=== PATIENT | male | born 1960 | race Caucasian/White ===

== ENCOUNTER 2016-07-07 13:12 | Emergency (ER) | payer MEDICARE, MEDICAID ==
[~2016-07-07] VITALS: Ht 162.6 cm; Wt 63.6 kg
[2016-07-07 13:14] VITALS: TEMP 98.2
[2016-07-07] MEDS ORDERED: SYNTHROID0.05 MG/TA PO (14:18)
[2016-07-07] MEDS ORDERED: NORVASC 5MG5 MG/TAB PO (14:18)
[2016-07-07] MEDS ORDERED: PRILOSEC 20MG20 MG PO (14:19)
[2016-07-07] MEDS ORDERED: TRIPHROCAPS SOFT1 MG PO (14:19)
[2016-07-07] MEDS ORDERED: ASPIRIN E.C. 8181 MG PO (14:20)
[2016-07-07] MEDS ORDERED: PHOS LO PO (14:21)
[2016-07-07 15:26] VITALS: BP 166/98; PULSE 86
== END 2016-07-07 15:28 | disposition home or self-care (01) ==
LOC: COL.ER 13:12
DX: R04.0 Epistaxis (principal); I12.9 Hypertensive chronic kidney disease with stage 1 through stage 4 chronic kidney disease, or unspecified chronic kidney disease; N18.9 Chronic kidney disease, unspecified; Z79.82 Long term (current) use of aspirin

== ENCOUNTER 2016-07-09 19:12 | Emergency (ER) | payer MEDICARE, MEDICAID ==
[~2016-07-09] VITALS: Ht 165.1 cm; Wt 63.6 kg
[~2016-07-09 19:12] MED LIST: ASPIRIN E.C. 8181 MG PO; NORVASC 5MG5 MG/TAB PO; PHOS LO PO; PRILOSEC 20MG20 MG PO; SYNTHROID0.05 MG/TA PO; TRIPHROCAPS SOFT1 MG PO
[2016-07-09 19:18] VITALS: TEMP 98.2
[2016-07-09] MEDS ORDERED: AMOXICILLIN875 MG PO (19:48)
[2016-07-09] MEDS ORDERED: RENVELA800 MG PO (19:49)
[2016-07-09] MEDS ORDERED: CATAPRES 0.1MG0.1 MG PO (20:31)
[2016-07-09 20:42] VITALS: BP 170/95; PULSE 88
== END 2016-07-09 20:43 | disposition home or self-care (01) ==
LOC: COL.ER 19:12
DX: R04.0 Epistaxis (principal); I12.0 Hypertensive chronic kidney disease with stage 5 chronic kidney disease or end stage renal disease; N18.6 End stage renal disease; Z99.2 Dependence on renal dialysis

== ENCOUNTER 2016-07-11 14:24 | Emergency (ER) | payer MEDICARE, MEDICAID ==
[~2016-07-11] VITALS: Ht 165.1 cm; Wt 63.6 kg
[~2016-07-11 14:24] MED LIST changes: +AMOXICILLIN875 MG PO; +CATAPRES 0.1MG0.1 MG PO; +RENVELA800 MG PO
[2016-07-11 14:26] VITALS: BP 177/96; TEMP 97.9
[2016-07-11] MEDS ORDERED: ZOVIRAX800 MG PO (15:10)
[2016-07-11 15:21] VITALS: PULSE 75
== END 2016-07-11 15:21 | disposition home or self-care (01) ==
LOC: COL.ER 14:24
DX: Z48.00 Encounter for change or removal of nonsurgical wound dressing (principal); B02.9 Zoster without complications

== ENCOUNTER 2016-07-14 23:44 | Inpatient (IN) | payer MEDICARE, MEDICAID ==
[~2016-07-14] VITALS: Ht 162.6 cm; Wt 63.7 kg
[~2016-07-14 23:44] MED LIST changes: +ZOVIRAX800 MG PO
[2016-07-15] VITALS (302 sets, daily range): BP systolic 136–171; BP diastolic 81–102; PULSE 74–88; TEMP 97.6–98.3; O2SAT 92–100
[2016-07-15 00:02] LABS: MEAN CELL VOLUME 95 fl (80.0-100.0); MEAN CORPUSCULAR HGB CONC 33 g/dl (33.0-37.0); MEAN PLATELET VOLUME 9.7 fl (7.4-10.4); PLATELET COUNT 156 K/mm3 (130-400); REDCELL DISTRIBUTION WIDTH-CV 15.1 % (11.5-14.5); WHITE BLOOD COUNT 8.3 K/mm3 (4.8-10.8)
[2016-07-15 00:05] LABS: ADD PATHOLOGY DIFF REVIEW NO; HEMATOCRIT 25.7 % (42.0-52.0); HEMOGLOBIN 8.4 g/dl (13.5-18.0); MEAN CORPUSCULAR HEMOGLOBIN 31 pg (27.0-31.0)
[2016-07-15 00:09] LABS: INR 1.1 (0.8-3.0)
[2016-07-15 00:11] LABS: CALCIUM 8.9 mg/dL (8.4-10.2); POTASSIUM 4.2 mmol/L (3.4-5.0)
[2016-07-15 00:13] LABS: CREATININE, serum 9.38 mg/dL (0.66-1.25)
[2016-07-15 00:19] LABS: BAND 5 % (0-10); BASOPHIL 1 % (0-2); EOSINOPHIL 6 % (0-4); MYELOCYTE 2 % (0-0); NEUTROPHILS 49 % (42.0-75.2); TOTAL CELLS COUNTED 100
[2016-07-15 03:15] LABS: TROPONIN-I 0.014 ng/mL (0.000-0.034)
[2016-07-15] MEDS ORDERED: RENO CAPS1 SGL PO (04:18)
[2016-07-15] MEDS ORDERED: FOLIC ACID 11 MG/TA1 PO (04:21)
[2016-07-15] MEDS ORDERED: VITAMIN C500 MG PO (04:22)
[2016-07-15] MEDS ORDERED: DELSYM30 MG/5 ML PO (05:32)
[2016-07-15] MEDS ORDERED: ATARAX 25MG25 MG/TAB PO (05:33)
[2016-07-15] MEDS ORDERED: COZAAR 50MG50 MG/TAB PO (05:33)
[2016-07-15] MEDS ORDERED: LOPRESSOR 225 MG/TAB PO (05:34)
[2016-07-15] MEDS ORDERED: MELATONIN1 MG PO (05:34)
[2016-07-15] MEDS ORDERED: ZOFRAN ODT4 MG PO (05:35)
[2016-07-15] MEDS ORDERED: LIQUIFILM TEARS15 ML OU (05:35)
[2016-07-15] MEDS ORDERED: TOBRADEX EYE DRO5 ML OP (05:36)
[2016-07-16 03:40] VITALS: BP 122/65; PULSE 73; TEMP 98.2
[2016-07-16 08:12] LABS: MEAN CELL VOLUME 93 fl (80.0-100.0); MEAN CORPUSCULAR HGB CONC 33 g/dl (33.0-37.0); MEAN PLATELET VOLUME 10.5 fl (7.4-10.4); PLATELET COUNT 158 K/mm3 (130-400); RED BLOOD COUNT 2.84 M/mm3 (4.20-5.60); REDCELL DISTRIBUTION WIDTH-CV 14.8 % (11.5-14.5); WHITE BLOOD COUNT 7.7 K/mm3 (4.8-10.8)
[2016-07-16 08:21] LABS: CALCIUM 8.9 mg/dL (8.4-10.2); POTASSIUM 4.5 mmol/L (3.4-5.0)
[2016-07-16 08:27] LABS: ADD PATHOLOGY DIFF REVIEW NO; HEMATOCRIT 26.4 % (42.0-52.0); HEMOGLOBIN 8.7 g/dl (13.5-18.0); MEAN CORPUSCULAR HEMOGLOBIN 31 pg (27.0-31.0)
[2016-07-16 08:30] LABS: CREATININE, serum 5.94 mg/dL (0.66-1.25)
[2016-07-16 09:12] VITALS: BP 126/76; PULSE 74; TEMP 98.2
[2016-07-16] MEDS ORDERED: ZOVIRAX800 MG PO (10:49)
[2016-07-16 11:11] VITALS: BP 130/82; PULSE 71; TEMP 98.1
[2016-07-16 13:52] LABS: BAND 9 % (0-10); BASOPHIL 2 % (0-2); EOSINOPHIL 4 % (0-4); NEUTROPHILS 53 % (42.0-75.2); TOTAL CELLS COUNTED 100
[2016-07-16 13:54] LABS: ANISOCYTOSIS 1+; PLATELET ESTIMATE NORMAL (NORMAL)
== END 2016-07-16 12:20 | disposition home or self-care (01) | DRG 917 ==
LOC: COL.ER 23:44 → ICU 07-15 02:40 → MEDICAL 07-15 12:18
PROVIDERS: Emergency Medicine; Internal Medicine
PROC: 5A1D00Z (ICD-10-PCS; principal; 2016-07-15)
DX: T37.5X1A Poisoning by antiviral drugs, accidental (unintentional), initial encounter (principal); N18.6 End stage renal disease; I12.0 Hypertensive chronic kidney disease with stage 5 chronic kidney disease or end stage renal disease; R41.82 Altered mental status, unspecified; R29.810 Facial weakness; B02.9 Zoster without complications; D64.9 Anemia, unspecified; E83.39 Other disorders of phosphorus metabolism; Z99.2 Dependence on renal dialysis; Z96.641 Presence of right artificial hip joint
CPT/HCPCS: J1644

== ENCOUNTER 2016-07-19 12:14 | Emergency (ER) | payer MEDICARE, MEDICAID ==
[~2016-07-19] VITALS: Ht 170.2 cm; Wt 77.3 kg
[~2016-07-19 12:14] MED LIST changes: +ATARAX 25MG25 MG/TAB PO; +COZAAR 50MG50 MG/TAB PO; +DELSYM30 MG/5 ML PO; +FOLIC ACID 11 MG/TA1 PO; +LIQUIFILM TEARS15 ML OU; +LOPRESSOR 225 MG/TAB PO; +MELATONIN1 MG PO; +RENO CAPS1 SGL PO; +TOBRADEX EYE DRO5 ML OP; +VITAMIN C500 MG PO; +ZOFRAN ODT4 MG PO
[2016-07-19 12:15] VITALS: TEMP 98
[2016-07-19 13:29] LABS: MEAN CELL VOLUME 93 fl (80.0-100.0); MEAN CORPUSCULAR HGB CONC 33 g/dl (33.0-37.0); MEAN PLATELET VOLUME 9.8 fl (7.4-10.4); PLATELET COUNT 155 K/mm3 (130-400); RED BLOOD COUNT 2.71 M/mm3 (4.20-5.60); REDCELL DISTRIBUTION WIDTH-CV 14.7 % (11.5-14.5); WHITE BLOOD COUNT 7.8 K/mm3 (4.8-10.8)
[2016-07-19 13:34] LABS: ADD PATHOLOGY DIFF REVIEW NO; HEMATOCRIT 25.1 % (42.0-52.0); HEMOGLOBIN 8.2 g/dl (13.5-18.0); MEAN CORPUSCULAR HEMOGLOBIN 30 pg (27.0-31.0)
[2016-07-19 13:42] LABS: BAND 5 % (0-10); EOSINOPHIL 8 % (0-4); NEUTROPHILS 63 % (42.0-75.2); TOTAL CELLS COUNTED 100
[2016-07-19 13:45] LABS: ADJUSTED CALCIUM 8.9 mg/dL (8.4-10.2); ALBUMIN 3.9 gm/dL (3.5-5.0); ANISOCYTOSIS 1+; BILIRUBIN,TOTAL 0.6 mg/dL (0.0-1.0); CALCIUM 8.8 mg/dL (8.4-10.2); HYPOCHROMIA 1+; MAGNESIUM 2.1 mg/dL (1.6-2.3); MICROCYTOSIS 1+; PHOSPHOROUS 7.4 mg/dL (2.5-4.5); POTASSIUM 4.5 mmol/L (3.4-5.0); ROULEAUX 1+; TOTAL PROTEIN 7.2 gm/dL (6.4-8.2)
[2016-07-19 13:47] LABS: CREATININE, serum 8.97 mg/dL (0.66-1.25)
[2016-07-19 15:39] VITALS: BP 159/86; PULSE 85
== END 2016-07-19 15:39 | disposition home or self-care (01) ==
LOC: COL.ER 12:14
PROVIDERS: Emergency Medicine
DX: B02.9 Zoster without complications (principal); R47.89 Other speech disturbances; I12.0 Hypertensive chronic kidney disease with stage 5 chronic kidney disease or end stage renal disease; N18.6 End stage renal disease; Z99.2 Dependence on renal dialysis; G31.84 Mild cognitive impairment of uncertain or unknown etiology